=== PATIENT | male | born 1985 | race African-American/Black ===

== ENCOUNTER 2019-11-19 11:22 | Inpatient (IN) | payer OTHER ==
--- OUTSIDE RECORDS SUMMARY | 2019-11-19 11:24 | XMS REPORT ---
:1985 [facility] at the [facility] [place] [address] Care Team Providers Name Role Phone Unavailable Unavailable Unavailable Problems This patient has no known problems. Allergies, Adverse Reactions, Alerts This patient has no known allergies or adverse reactions. Medications This patient has no known medications.
[2019-11-19] MEDS ORDERED: ONDANSETRON 4 MG/2 ML VIAL ONE ×3 (12:18→18:42)
[2019-11-19] MEDS ORDERED: MORPHINE 4 MG/ML SYR ONE (12:18)
[2019-11-19] MEDS ORDERED: FENTANYL CITR 100 MCG/2 ML ONE ×7 (12:35→19:04)
[2019-11-19 12:43] LABS: Absolute Lymphocytes (CBC) 2.2 K/uL (0.7-4.9); Basophils % 0.4 % (0-1.3); Hematocrit 46.7 % (39.6-49.0); Lymphocytes % 13.9 % (15.3-44.8); MPV 8.4 fL (7.6-11.3)
[2019-11-19 12:51] LABS: BUN Blood Urea Nitrogen 10 mg/dL (7-18); Bicarbonate 35 mmol/L (21-32); Glucose Level 93 mg/dL (74-106); Potassium 3.4 mmol/L (3.5-5.1); Sodium Level 139 mmol/L (136-145)
--- NOTE | 2019-11-19 15:37 | RAD REPORT ---
EXAM DESCRIPTION: CTAbdomen Pelvis W Contrast - 11/19/2019 3:25 pm CLINICAL HISTORY: Abdominal pain. umbilical hernia;Abd pain;Pain COMPARISON: No comparisons TECHNIQUE: Biphasic CT imaging of the abdomen and pelvis was performed with 100 ml non-ionic IV cont rast. All CT scans are performed using dose optimization technique as appropriate and may include automated exposure control or mA/KV adjustment according to patient size. FINDINGS: The lung bases are clear.Small hiatal hernia. The liver, spleen, pancreas, adrenal glands and kidneys are within normal limits. Dilated small bowel loops are present in the mid and lower abdomen. This appears to be the result of a small bowel loop containing umbilical hernia which show signs of incarceration and demonstrates abr upt caliber change of the small bowel. No free air or abscess. Appendectomy. No evidence of signifi cant lymphadenopathy. No suspicious bony findings. IMPRESSION: Mild to moderate mechanical small-bowel obstruction is present caused by small bowel inc arcerated within a umbilical hernia.
[2019-11-19] MEDS ORDERED: PIPER/TAZO/NS 3.375gm 3.375 GM/100 ML BAG ONE (15:48)
--- NOTE | 2019-11-19 15:48 | EDPHYS ---
Physician Documentation [facility] Name: Eulalio Flores Jr Age: 34 yrs Sex: Male : 1985 Arrival Date: 11/19/2019 Time: 11:23 Bed 2 Private MD: Isabel Taylor K ED Physician Antonio Lee HPI: 11/19 16:02 This 34 yrs old Black Male presents to ER via Ambulatory with complaints of Abdominal kb Pain. 16:02 The patient presents with abdominal pain in the periumbilical area. Onset: The kb symptoms/episode began/occurred yesterday, at 13:00. The symptoms radiate to groin. Associated signs and symptoms: Pertinent positives: nausea. The symptoms are described as constant. Modifying factors: The symptoms are alleviated by nothing, the symptoms are aggravated by pressure. Severity of pain: At its worst the pain was moderate in the emergency department the pain is unchanged. The patient has not experienced similar symptoms in the past. The patient has been recently seen by a physician: the patient's primary care provider, earlier today, with similar presenting complaints, and was sent to the [facility] Emergency Department for further evaluation. Pt reports abd pain and nausea that started at 1300 yesterday. Went to his PCP today and was sent here for strangulated hernia. Historical: - Allergies: 11:42 No Known Allergies; jl7 - Home Meds: 11:42 Lisinopril Oral [Active]; hydrochlorothiazide Oral [Active]; jl7 - PMHx: 11:42 Hypertension; jl7 - PSHx: 11:42 Appendectomy; jl7 - Immunization history:: Adult Immunizations not up to date. - Coronavirus screen:: The patient has NOT traveled to [place], [place], or [place] in the past 14 days. Proceed with normal triage process as indicated. - Social history:: Smoking status: Patient reports the use of cigarette tobacco products, 1 or 2 cigarettes/day. - Ebola Screening: : No symptoms or risks identified at this time. ROS: 16:02 Constitutional: Negative for fever, chills, and weight loss, ENT: Negative for injury, kb pain, and discharge, Neck: Negative for injury, pain, and swelling, Cardiovascular: Negative for chest pain, palpitations, and edema, Respiratory: Negative for shortness of breath, cough, wheezing, and pleuritic chest pain, Back: Negative for injury and pain, : Negative for injury, bleeding, discharge, and swelling, MS/Extremity: Negative for injury and deformity, Skin: Negative for injury, rash, and discoloration, Neuro: Negative for headache, weakness, numbness, tingling, and seizure. 16:02 Abdomen/GI: Positive for abdominal pain, nausea. Exam: 16:00 Constitutional: This is a well developed, well nourished patient who is awake, alert, kb and in no acute distress. Head/Face: Normocephalic, atraumatic. Neck: Trachea midline, no thyromegaly or masses palpated, and no cervical lymphadenopathy. Supple, full range of motion without nuchal rigidity, or vertebral point tenderness. No Meningismus. Chest/axilla: Normal chest wall appearance and motion. Nontender with no deformity. No lesions are appreciated. Cardiovascular: Regular rate and rhythm with a normal S1 and S2. No gallops, murmurs, or rubs. Normal PMI, no JVD. No pulse deficits. Respiratory: Lungs have equal breath sounds bilaterally, clear to auscultation and percussion. No rales, rhonchi or wheezes noted. No increased work of breathing, no retractions or nasal flaring. Back: No spinal tenderness. No costovertebral tenderness. Full range of motion. Skin: Warm, dry with normal turgor. Normal color with no rashes, no lesions, and no evidence of cellulitis. MS/ Extremity: Pulses equal, no cyanosis. Neurovascular intact. Full, normal range of motion. Neuro: Awake and alert, GCS 15, oriented to person, place, time, and situation. Cranial nerves II-XII grossly intact. Motor strength 5/5 in all extremities. Sensory grossly intact. Cerebellar exam normal. Normal gait. 16:00 Abdomen/GI: Inspection: abdomen appears normal, Bowel sounds: normal, in all quadrants, Palpation: soft, in all quadrants, moderate abdominal tenderness, in the umbilical area, Hernia: noted in the umbilical area, incarceration, that is moderate, tenderness, that is moderate, that is severe. Vital Signs: 11:42 BP 133 / 74; Pulse 76; Resp 16 S; Temp 98.9(O); Pulse Ox 100% on R/A; Weight 114.31 kg jl7 (R); Height 5 ft. 6 in. (167.64 cm) (R); Pain 8/10; 12:45 BP 142 / 76; Pulse 64; Resp 15; Pulse Ox 98% on R/A; hb 13:45 BP 147 / 77; Pulse 58; Resp 16; Pulse Ox 99% on R/A; Pain 5/10; hb 14:45 BP 146 / 78; Pulse 58; Resp 17; Pulse Ox 98% on R/A; Pain 4/10; hb 15:45 BP 128 / 85; Pulse 83; Resp 17; Temp 98.5; Pulse Ox 99% on R/A; Pain 9/10; hb 16:21 BP 136 / 79; Pulse 69; Resp 14; Pulse Ox 99% on R/A; hb 11:42 Body Mass Index 40.67 (114.31 kg, 167.64 cm) jl7 MDM: 11:45 Patient medically screened. kb 13:41 Data reviewed: vital signs, nurses notes. Data interpreted: Pulse oximetry: on room air kb is 100 %. Interpretation: normal. ED course: I was able to partially reduce hernia after first dose of fentanyl. Dr Lee tried to reduce it as well, unable to fully reduce hernia. Fentanyl repeated. . 15:45 Counseling: I had a detailed discussion with the patient and/or guardian regarding: the kb historical points, exam findings, and any diagnostic results supporting the discharge/admit diagnosis, lab results, radiology results, the need for further work-up and treatment in the hospital. Physician consultation: Randy Calhoun MD was contacted at 15:45, regarding admission, to the medical/surgical unit. patient's condition, and will see patient in ED, shortly. 11/19 12:04 Order name: Basic Metabolic Panel; Complete Time: 14:08 kb 11/19 12:04 Order name: CBC with Diff; Complete Time: 12:46 kb 11/19 13:03 Order name: CT Abd/Pelvis - PO and IV Contrast; Complete Time: 15:42 shannon 11/19 16:20 Order name: Urine Dipstick--Ancillary (enter results) bd 11/19 16:30 Order name: Urine Dipstick-Ancillary; Complete Time: 16:36 EDMS 11/19 12:04 Order name: IV Saline Lock; Complete Time: 12:26 kb 01/29 12:04 Order name: Labs collected and sent; Complete Time: 12:26 kb Administered Medications: 12:26 Drug: morphine 4 mg Route: IVP; Site: right antecubital; hb 13:00 Follow up: Response: No adverse reaction hb 12:26 Drug: Zofran 4 mg Route: IVP; Site: right antecubital; hb 13:00 Follow up: Response: No adverse reaction hb 12:34 Drug: fentaNYL (PF) 50 mcg Route: IVP; Site: right antecubital; hb 13:00 Follow up: Response: No adverse reaction; Pain is decreased hb 13:01 Drug: fentaNYL (PF) 50 mcg Route: IVP; Site: right antecubital; sv 13:30 Follow up: Response: No adverse reaction; Pain is decreased hb 15:10 Drug: fentaNYL (PF) 50 mcg Route: IVP; Site: right antecubital; sv 15:30 Follow up: Response: No adverse reaction hb 15:49 Drug: fentaNYL (PF) 50 mcg {Note: RASS +2.} Route: IVP; Site: right antecubital; hb 16:22 Follow up: Response: No adverse reaction hb 16:00 Drug: Zosyn 3.375 grams Route: IVPB; Infused Over: 60 mins; Site: right antecubital; hb 17:05 Follow up: Response: No adverse reaction; IV Status: Completed infusion; IV Intake: hb 100ml 16:00 Drug: NS 0.9% 1000 ml Route: IV; Rate: 125 ml/hr; Site: right antecubital; hb 17:14 Follow up: Response: No adverse reaction; IV Status: Infusion continued upon admission hb 16:10 Drug: Valium 5 mg Route: IVP; Site: right antecubital; hb 16:30 Follow up: Response: No adverse reaction hb Disposition: 11/20 07:36 Co-signature as Attending Physician, Antonio Lee MD I agree with the assessment and shannon plan of care. Disposition: 11/19/19 15:47 Hospitalization ordered by Randy Calhoun for Inpatient Admission. Preliminary diagnosis is Small Bowel obstruction secondary to incarcerated umbilical hernia. - Bed requested for Telemetry/MedSurg (Inpatient). - Status is Inpatient Admission. hb - Condition is Stable. - Problem is new. - Symptoms are unchanged. UTI on Admission? No Signatures: Dispatcher [employer] EDMS Dayan Lala, CHIEF JUVENILE PROBATION OFFICER-C CHIEF JUVENILE PROBATION OFFICER-Ckb Melissa Fraga, RN RN Antonio Hernandez MD MD cha Baxter, Heather, RN RN Zuleika Cabrera RN RN jl7 Corrections: (The following items were deleted from the chart) 11/19 13:09 12:54 Abdomen Pelvis W Con+CT.RAD.BRZ ordered. EDNE EDMS 17:47 15:47 Hospitalization Ordered by Randy Calhoun MD for Inpatient Admission. Preliminary hb diagnosis is Small Bowel obstruction secondary to incarcerated umbilical hernia. Bed requested for Telemetry/MedSurg (Inpatient). Status is Inpatient Admission. Condition is Stable. Problem is new. Symptoms are unchanged. UTI on Admission? No. kb
--- NOTE | 2019-11-19 15:48 | ER ---
Nurse's Notes [facility] Name: Eulalio Flores Jr Age: 34 yrs Sex: Male : 1985 Arrival Date: 11/19/2019 Time: 11:23 Bed 2 Private MD: Isabel Taylor K Diagnosis: Small Bowel obstruction secondary to incarcerated umbilical hernia Presentation: 11/19 11:39 Presenting complaint: Patient states: Umbilical area abdominal pain started at 1300 jl7 yesterday, N/V, chills and cold sweats all last night. Went to Dr. Taylor and she sent me to be evaluated for a strangulated umbilical hernia. Transition of care: patient was not received from another setting of care. Onset of symptoms was November 18, 2019 at 13:00. Risk Assessment: Do you want to hurt yourself or someone else? Patient reports no desire to harm self or others. Initial Sepsis Screen: Does the patient meet any 2 criteria? No. Patient's initial sepsis screen is negative. Does the patient have a suspected source of infection? No. Patient's initial sepsis screen is negative. Care prior to arrival: None. 11:39 Method Of Arrival: Ambulatory jl7 11:39 Acuity: AILIN 3 jl7 Triage Assessment: 11:42 General: Appears in no apparent distress. uncomfortable, Behavior is calm, cooperative, jl7 appropriate for age. Pain: Complains of pain in umbilical area Pain currently is 8 out of 10 on a pain scale. GI: Reports nausea. Historical: - Allergies: 11:42 No Known Allergies; jl7 - Home Meds: 11:42 Lisinopril Oral [Active]; hydrochlorothiazide Oral [Active]; jl7 - PMHx: 11:42 Hypertension; jl7 - PSHx: 11:42 Appendectomy; jl7 - Immunization history:: Adult Immunizations not up to date. - Coronavirus screen:: The patient has NOT traveled to [place], [place], or [place] in the past 14 days. Proceed with normal triage process as indicated. - Social history:: Smoking status: Patient reports the use of cigarette tobacco products, 1 or 2 cigarettes/day. - Ebola Screening: : No symptoms or risks identified at this time. Screenin:35 Abuse screen: Denies threats or abuse. Denies injuries from another. Nutritional hb screening: No deficits noted. Tuberculosis screening: No symptoms or risk factors identified. Fall Risk None identified. Assessment: 12:05 General: Appears in no apparent distress. Behavior is calm, cooperative. Pain: Pain hb currently is 8 out of 10 on a pain scale. Neuro: Level of Consciousness is awake, alert, obeys commands, Oriented to person, place, time, situation. Cardiovascular: Capillary refill < 3 seconds Patient's skin is warm and dry. Respiratory: Airway is patent Respiratory effort is even, unlabored, Respiratory pattern is regular, symmetrical, Breath sounds are clear bilaterally. GI: Abdomen is obese, Bowel sounds present X 4 quads. Abd is soft X 4 quads Abdomen is tender to palpation upper abdomen, periumbilical area. : No signs and/or symptoms were reported regarding the genitourinary system. EENT: No signs and/or symptoms were reported regarding the EENT system. Derm: Skin is pink, warm \T\ dry. Musculoskeletal: No signs and/or symptoms reported regarding the musculoskeletal system. 13:29 Reassessment: Informed CT pt finished contrast. sv 13:49 Reassessment: Patient appears in no apparent distress at this time. Patient and/or hb family updated on plan of care and expected duration. Pain level reassessed. Patient is alert, oriented x 3, equal unlabored respirations, skin warm/dry/pink. 14:30 Reassessment: Patient appears in no apparent distress at this time. Patient and/or hb family updated on plan of care and expected duration. Pain level reassessed. Patient is alert, oriented x 3, equal unlabored respirations, skin warm/dry/pink. 15:15 Reassessment: Pt c/o abdominal pain 8/10, WEATHER ANALYST Dayan notified, repeat Fentanyl hb administered as ordered. Family remains at bedside. 15:56 Reassessment: Pt restless, crying, reports abdominal pain 9/10, WEATHER ANALYST Dayan notified, hb repeat fentanyl administered as ordered. VSS. Family remains at bedside. 16:20 Reassessment: Dr. Calhoun and Dr. Lee at bedside. Consent for surgery obtained. hb Valium administered as ordered. Family remains at bedside. Awaiting OR team for transport to OR at this time. 17:00 Reassessment: Patient appears in no apparent distress at this time. Patient and/or hb family updated on plan of care and expected duration. Pain level reassessed. Patient is alert, oriented x 3, equal unlabored respirations, skin warm/dry/pink. Vital Signs: 11:42 BP 133 / 74; Pulse 76; Resp 16 S; Temp 98.9(O); Pulse Ox 100% on R/A; Weight 114.31 kg jl7 (R); Height 5 ft. 6 in. (167.64 cm) (R); Pain 8/10; 12:45 BP 142 / 76; Pulse 64; Resp 15; Pulse Ox 98% on R/A; hb 13:45 BP 147 / 77; Pulse 58; Resp 16; Pulse Ox 99% on R/A; Pain 5/10; hb 14:45 BP 146 / 78; Pulse 58; Resp 17; Pulse Ox 98% on R/A; Pain 4/10; hb 15:45 BP 128 / 85; Pulse 83; Resp 17; Temp 98.5; Pulse Ox 99% on R/A; Pain 9/10; hb 16:21 BP 136 / 79; Pulse 69; Resp 14; Pulse Ox 99% on R/A; hb 11:42 Body Mass Index 40.67 (114.31 kg, 167.64 cm) jl7 ED Course: 11:23 Patient arrived in ED. as 11:23 Isabel Taylor MD is Private Physician. as 11:41 Triage completed. jl7 11:42 Dayan Lala [facility]-Jacinta [facility] kb 11:42 Antonio Lee MD is Attending Physician. kb 11:42 Arm band placed on right wrist. jl7 12:12 Elma Storm, TRICE is Primary Nurse. hb 12:25 Inserted saline lock: 20 gauge in right antecubital area, using aseptic technique. hb Blood collected. 12:26 Patient has correct armband on for positive identification. Bed in low position. Call hb light in reach. Side rails up X 1. 15:26 CT Abd/Pelvis - PO and IV Contrast In Process Unspecified. EDMS 15:47 Randy Calhoun MD is Hospitalizing Provider. kb 17:14 Urine Dipstick--Ancillary (enter results) Sent. hb 17:46 No provider procedures requiring assistance completed. Patient admitted, IV remains in hb place. Administered Medications: 12:26 Drug: morphine 4 mg Route: IVP; Site: right antecubital; hb 13:00 Follow up: Response: No adverse reaction hb 12:26 Drug: Zofran 4 mg Route: IVP; Site: right antecubital; hb 13:00 Follow up: Response: No adverse reaction hb 12:34 Drug: fentaNYL (PF) 50 mcg Route: IVP; Site: right antecubital; hb 13:00 Follow up: Response: No adverse reaction; Pain is decreased hb 13:01 Drug: fentaNYL (PF) 50 mcg Route: IVP; Site: right antecubital; sv 13:30 Follow up: Response: No adverse reaction; Pain is decreased hb 15:10 Drug: fentaNYL (PF) 50 mcg Route: IVP; Site: right antecubital; sv 15:30 Follow up: Response: No adverse reaction hb 15:49 Drug: fentaNYL (PF) 50 mcg {Note: RASS +2.} Route: IVP; Site: right antecubital; hb 16:22 Follow up: Response: No adverse reaction hb 16:00 Drug: Zosyn 3.375 grams Route: IVPB; Infused Over: 60 mins; Site: right antecubital; hb 17:05 Follow up: Response: No adverse reaction; IV Status: Completed infusion; IV Intake: hb 100ml 16:00 Drug: NS 0.9% 1000 ml Route: IV; Rate: 125 ml/hr; Site: right antecubital; hb 17:14 Follow up: Response: No adverse reaction; IV Status: Infusion continued upon admission hb 16:10 Drug: Valium 5 mg Route: IVP; Site: right antecubital; hb 16:30 Follow up: Response: No adverse reaction hb Intake: 17:05 IV: 100ml; Total: 100ml. hb Outcome: 15:47 Decision to Hospitalize by Provider. kb 17:46 Admitted to OR accompanied by nurse, family with patient, via stretcher, with chart. hb 17:46 Condition: stable 17:46 Instructed on the need for admit, Demonstrated understanding of instructions. 17:47 Patient left the ED. hb Signatures: Dispatcher [employer] EDMS Dayan Lala FNP-C FNP-Ckb Verde, Stephanie, RN RN sv Martinez, Amelia as Baxter, Heather, RN RN Zuleika Cabrera RN RN jl7 Corrections: (The following items were deleted from the chart) 14:56 14:55 BP 146 / 78; Pulse 58bpm; Resp 17bpm; Pulse Ox 98% RA; Pain 4/10; hb hb 16:19 06:13 Valium 5 mg IVP in right antecubital hb hb
[2019-11-19] MEDS ORDERED: NA CHLORIDE 0.9% 1,000 ML ONE (15:57)
[2019-11-19] MEDS ORDERED: DIAZEPAM 10 MG/2 ML INJ SYRINGE ONE (16:12)
[2019-11-19 16:29] LABS: Urine Blood 1+ (NEG); Urine Glucose NEGATIVE (NEG); Urine Protein 2+ (NEG); Urine pH 8.5 (5.0-7.0)
--- NOTE | 2019-11-19 17:53 | P.HP ---
Date of Service: 11/19/19 PC: This 34-year-old male presents emergency room with severe periumbilical pain for diagnosis and treatment. HPC: Patient had sudden onset of excruciating abdominal pain earlier this afternoon. Noticed a bulge in that area. He could not put it back inside. PMH: Hypertension PSHx: Previous laparoscopic appendectomy SOC: No known allergies SYS REVIEW: No cough, wheeze, shortness of breath. No chest pain or palpitations. Has sleep apnea. Lost about 80 lb over the last year so O/E awake alert vital signs are stable very uncomfortable HEENT: Within normal limits Chest: Chest movement equal bilaterally ABD: Firm hard tender mass in the periumbilical region LOCO: Intact DATA: Elevated white cell count, CT scan demonstrates meghana umbilical hernia with bowel has content IMPRESSION: Incarcerated umbilical hernia PLAN: I will take him the operating room for laparoscopic reduction repair of this incarcerated hernia. The risks of this procedure have been discussed. The possibility of bleeding, infection, need for bowel resection and possible open procedure have been outlined. The use of mass and its possible risks were explained. Suture versus mesh repairs were outlined. He understands and wants us to proceed.
[2019-11-19] MEDS ORDERED: SUCCINYLCHOLINE 20 MG/ML (10 ML) IV ONE (17:54)
[2019-11-19] MEDS ORDERED: propofoL 200 MG/20 ML VIAL IV ONE (18:00)
[2019-11-19] MEDS ORDERED: LIDOCAINE 2% MPF 5 ML VIAL ONE (18:05)
[2019-11-19] MEDS ORDERED: ROCURONIUM 50 MG/5 ML VIAL IV ONE (18:30)
[2019-11-19] MEDS ORDERED: KETOROLAC 30 MG/ML INJ ONE (18:42)
[2019-11-19] MEDS ORDERED: dexAMETHasone 10 MG/ML VIAL ONE (18:42)
[2019-11-19] MEDS ORDERED: GLYCOPYRROLATE 0.2 MG/ML SYR ONE ×2 (18:52→19:01)
[2019-11-19] MEDS ORDERED: NEOSTIGMINE 1 MG/ML -5 ML ONE (19:02)
[2019-11-19] MEDS: Ringers Lactate 1,000 ML IV ONE ×2 (19:17→19:20)
--- NOTE | 2019-11-19 19:54 | P.OP ---
Preoperative diagnosis: Incarcerated umbilical hernia Postoperative diagnosis: Strangulated umbilical hernia Primary procedure: Laparoscopic reduction of strangulated umbilical hernia Secondary procedure: Small-bowel resection Other procedure(s): Open umbilical hernia repair Anesthesia: General Estimated blood loss: Less than 20 cc Specimen: Incarcerated bowel, hernia sac Operative Technique: The patient was brought to the operating room placed supine on the table. After the induction of adequate general endotracheal anesthesia, a Regalado catheter was inserted. The abdomen was now prepped with a DuraPrep solution, in use draped in usual aseptic manner. Attention was turned towards the left upper quadrant. A skin incision was made. This brought down through the skin and subcutaneous tissue. The Visiport was now used to enter the peritoneal cavity and created pneumoperitoneum to approximately 12 mm of mercury. Under direct vision a 5 mm trocar was placed in the left lower quadrant. Attention was turned towards the anterior abdominal wall. We could see 2 loops of viable bowel going up to the abdominal wall. This was the afferent and AE for it loops that were incarcerated. Applying gentle traction to the area as well as external pressure we were able to gradually reduce this intestine back into the peritoneal cavity. We could see there was obvious sharp line of demarcation any area of vascular compromise bowel. At this point attention was turned towards the umbilicus. Making a skin incision down through the skin and subcutaneous tissue. We were able to circumvent the emboli kiss. The hernia sac was found in the subcutaneous tissue. There was incarcerated ligament inside this. This was not resected from the surrounding tissue. We now had a defect that measured approximately 2.5 cm in size. We were to bring up the loop of compromise bowel through this defect. Using a MACRINA AE a [id number] functional end-to-end anastomosis was done. The bowel was now returned to the abdominal cavity. The hernial defect was addressed at this point. Using the Endo Close we were able to place 3 interrupted sutures of nylon to bring together the facile edges. A piece of 2. Nylon was then run from the top to the bottom of this to ensure we had airtight fascia approximating the closure. This having been done the pneumoperitoneum was reestablished. We were now able to visualize the peritoneal cavity. We saw the anastomosis as of lay on top of the bowel. It showed good viability and visible peristalsis. This was covered over with the omentum. Anterior abdominal wall was also inspected in the lower portion of the abdomen. There is no significant inguinal hernias. At this point the pneumoperitoneum was collapsed, the trocars removed, and dae were applied to the skin. At the end of the procedure he was stable when sent to the recovery room. Needle sponge instrument count were correct. No drains were placed. Complications: None Transferred to: Recovery Room Condition: Good
[2019-11-19] MEDS ORDERED: NS KCL 20MEQ 20 MEQ/1,000 ML BAG IV SCH (20:17)
[2019-11-19] MEDS: Ringers Lactate 1,000 ML IV SCH (20:17)
[2019-11-19] MEDS ORDERED: ACETAMINOPHEN 500 MG TAB PO PRN (20:17)
[2019-11-19] MEDS ORDERED: ONDANSETRON 4 MG/2 ML VIAL IV PRN ×2 (20:17)
[2019-11-19] MEDS ORDERED: MORPHINE 4 MG/ML SYR IV PRN (20:17)
[2019-11-19] MEDS ORDERED: FENTANYL CITR 100 MCG/2 ML IV PRN (20:17)
[2019-11-19] MEDS: PIPER/TAZO/NS 3.375gm 3.375 GM/100 ML BAG IVPB SCH ×2 (20:17→23:06)
[2019-11-19 20:59] VITALS: BMI 40.6
[2019-11-19] MEDS ORDERED: PIPERACIL/TAZO 3.375 GM VIAL IV ONE (22:52)
[2019-11-19] MEDS ORDERED: NA CHLORIDE 0.9% 100 ML ONE (22:59)
[2019-11-19] MEDS: HYDROCODONE/APAP 7.5/325 MG TAB PO PRN (23:05)
[2019-11-20] MEDS: Ringers Lactate 1,000 ML IV SCH (03:06)
[2019-11-20] MEDS: HYDROCODONE/APAP 7.5/325 MG TAB PO PRN ×2 (04:07→09:11)
[2019-11-20] MEDS ORDERED: NA CHLORIDE 0.9% 100 ML ONE (05:13)
[2019-11-20] MEDS: PIPER/TAZO/NS 3.375gm 3.375 GM/100 ML BAG IVPB SCH (05:19)
[2019-11-20 05:53] LABS: Absolute Lymphocytes (CBC) 1.1 K/uL (0.7-4.9); Basophils % 0.1 % (0-1.3); Hematocrit 42.2 % (39.6-49.0); MPV 8.9 fL (7.6-11.3); RBC Red Blood Cell Count 4.88 M/uL (4.33-5.43)
[2019-11-20 05:54] LABS: BUN Blood Urea Nitrogen 10 mg/dL (7-18); Bicarbonate 28 mmol/L (21-32); Glucose Level 121 mg/dL (74-106); Potassium 3.5 mmol/L (3.5-5.1); Sodium Level 138 mmol/L (136-145)
[2019-11-20] MEDS ORDERED: INFLUENZA VACCINE (for 3y+) 0.5 ML DOSE IMVAC ONE (06:00)
[2019-11-20] MEDS ORDERED: PIPER/TAZO/NS 3.375gm 3.375 GM/100 ML BAG IVPB SCH (11:00)
[2019-11-20 11:10] VITALS: BP 128/66; TEMP 97
[2019-11-20 12:43] VITALS: O2SAT 98
--- NOTE | 2019-11-20 13:09 | P.PN ---
Date of Service: 11/20/19 S: Patient feels well today, very thankful and relieved that his pain is gone. O: Vital signs are stable, tolerating full liquids, pain is well controlled on oral medications incision is clean A: Surgically stable status post small bowel resection for strangulated umbilical hernia PE: Discharge home. Instructions given.
== END 2019-11-20 13:25 | disposition home or self-care (01) | DRG 331 ==
LOC: ER 11:22 → ERHOLD 15:54 → 2ND 18:49
PROVIDERS: ADMIT Surgery; ATTEND Surgery
PROC: 0WQF0ZZ Repair Abdominal Wall, Open Approach (ICD-10-PCS; 2019-11-19)
PROC: 0WJF4ZZ Inspection of Abdominal Wall, Percutaneous Endoscopic Approach (ICD-10-PCS; 2019-11-19)
PROC: 0DB84ZZ Excision of Small Intestine, Percutaneous Endoscopic Approach (ICD-10-PCS; principal; 2019-11-19 18:00)
DX: K42.0 Umbilical hernia with obstruction, without gangrene (principal); I10 Essential (primary) hypertension
CPT/HCPCS: 36415; 74177; 80048; 81003; 85025; 88302; 88305; 88307; 96365; 96375; 99285; J0330; J1100; J2405; J2543; J2704; J2710; J3010; J3360; J7030; J7120; Q9967

== ENCOUNTER 2019-11-22 21:03 | Emergency (ER) | payer OTHER ==
--- OUTSIDE RECORDS SUMMARY | 2019-11-22 21:05 | XMS REPORT ---
:1985 [facility] Address [address] [place] [address] [address] [place] [address] Care Team Providers Name Role Phone Unavailable Unavailable Unavailable Problems This patient has no known problems. Allergies, Adverse Reactions, Alerts This patient has no known allergies or adverse reactions. Medications This patient has no known medications.
--- NOTE | 2019-11-22 22:03 | EDPHYS ---
Physician Documentation [facility] Name: Eulalio Flores Jr Age: 34 yrs Sex: Male : 1985 Arrival Date: 11/22/2019 Time: 21:06 Bed 26 Private MD: Isabel Taylor K ED Physician Gregorio Kaufman HPI: 11/22 21:41 This 34 yrs old Black Male presents to ER via Ambulatory with complaints of POST [facility] SURGICAL PROBLEM. 21:41 Patient presents to ED for recheck of: surgical incision. The affected area is on the [facility] umbilical area. This is a 34 year old male s/p hernia repair which occurred 3 days prior. Patient states having a large amount of bloody drainage just prior to arrival. Patient denies abdominal pain, fever or chills. . Historical: - Allergies: 21:14 No Known Allergies; jd3 - Home Meds: 21:14 lisinopril Oral [Active]; Hydrochlorothiazide Oral [Active]; jd3 - PMHx: 21:14 Hypertension; jd3 - PSHx: 21:14 Appendectomy; Hernia repair; jd3 - Immunization history:: Adult Immunizations up to date. - Coronavirus screen:: The patient has NOT traveled to [place], [place], or [place] in the past 14 days. The patient has NOT had contact with known/suspected case of Coronavirus? Proceed with normal triage procedures. - Social history:: Smoking status: Patient reports the use of cigarette tobacco products, denies chronic smoking, but will smoke occasionally. - Ebola Screening: : Patient negative for fever greater than or equal to 101.5 degrees Fahrenheit, and additional compatible Ebola Virus Disease symptoms. ROS: 21:41 Constitutional: Negative for fever, chills, and weight loss, Cardiovascular: Negative jmm for chest pain, palpitations, and edema, Respiratory: Negative for shortness of breath, cough, wheezing, and pleuritic chest pain, Abdomen/GI: Negative for abdominal pain, nausea, vomiting, diarrhea, and constipation. 21:41 Skin: Positive for drainage. 21:41 All other systems are negative. Exam: 21:41 Constitutional: This is a well developed, well nourished patient who is awake, alert, jmm and in no acute distress. Head/Face: atraumatic. Eyes: EOMI, no conjunctival erythema appreciated ENT: Moist Mucus Membranes Neck: Trachea midline, Supple Chest/axilla: Normal chest wall appearance and motion. Cardiovascular: Regular rate and rhythm. No edema appreciated Respiratory: Normal respirations, no respiratory distress appreciated 21:41 Abdomen/GI: abdomen is soft and non tender to palpation. incision sites noted with mild bleeding from the umbilical incision. no erythema or induration appreciated. 21:41 Musculoskeletal/extremity: ROM: intact in all extremities. 21:41 Skin: incision sites noted on abdominal exam. 21:41 Neuro: Orientation: is normal, Mentation: is normal, Memory: is normal. 21:41 Psych: Behavior/mood is pleasant, cooperative. Vital Signs: 21:14 BP 138 / 75; Pulse 79; Resp 17 S; Temp 97.2(TE); Pulse Ox 100% on R/A; Weight 114.31 kg jd3 (R); Height 5 ft. 6 in. (167.64 cm) (R); Pain 3/10; 22:09 BP 125 / 78; Pulse 80; Resp 18; Temp 98; Pulse Ox 100% on R/A; mg2 21:14 Body Mass Index 40.67 (114.31 kg, 167.64 cm) jd3 MDM: 21:41 Patient medically screened. [facility] 22:00 Data reviewed: vital signs, nurses notes. Counseling: I had a detailed discussion with yulia the patient and/or guardian regarding: the historical points, exam findings, and any diagnostic results supporting the discharge/admit diagnosis, the need for outpatient follow up, to return to the emergency department if symptoms worsen or persist or if there are any questions or concerns that arise at home. ED course: No signs of infection appreciated. Abdomen is soft, patient is afebrile and non toxic in appearance. I discussed the patient with Dr. Calhoun when recommended removing a staple to allow for increased drainage. Will follow up with the patient on Sunday. Patient is otherwise given strict return precautions. . 11/22 21:55 Order name: Wound Care; Complete Time: 21:56 french Administered Medications: No medications were administered Disposition: 11/22/19 22:02 Discharged to Home. Impression: Wound Check. - Condition is Stable. - Discharge Instructions: [place]. - Medication Reconciliation Form, Thank You Letter, Antibiotic Education, Prescription Opioid Use form. - Follow up: Randy Calhoun MD; When: 11/24/2019. Addendum: 11/24/2019 07:47 Co-signature as Attending Physician, Gregorio Kaufman MD I agree with the assessment and t w4 plan of care. Signatures: Daniel Black PA PA jmm Davies, Jonathon, RN RN jd3 Gregorio Kaufman MD MD tw4 Jonny Lazaro RN RN mg2 Corrections: (The following items were deleted from the chart) 11/22 22:10 22:02 11/22/2019 22:02 Discharged to Home. Impression: Wound Check. Condition is mg2 Stable. Forms are Medication Reconciliation Form, Thank You Letter, Antibiotic Education, Prescription Opioid Use. Follow up: Randy Calhoun; When: 11/24/2019. yulia
--- NOTE | 2019-11-22 22:03 | ER ---
Nurse's Notes [facility] Name: Eulalio Flores Jr Age: 34 yrs Sex: Male : 1985 Arrival Date: 11/22/2019 Time: 21:06 Bed 26 Private MD: Isabel Taylor K Diagnosis: Wound Check Presentation: 11/22 21:11 Presenting complaint: Patient states: "I had hernia repair on Sunday afternoon and jd3 released on . I have been feeling good, but I noticed some bleeding from the surgical site and I wanted to be sure nothing popped.". Transition of care: patient was not received from another setting of care. Onset of symptoms was November 22, 2019. Risk Assessment: Do you want to hurt yourself or someone else? Patient reports no desire to harm self or others. Initial Sepsis Screen: Does the patient meet any 2 criteria? No. Patient's initial sepsis screen is negative. Does the patient have a suspected source of infection? No. Patient's initial sepsis screen is negative. Care prior to arrival: None. 21:11 Method Of Arrival: Ambulatory jd3 21:11 Acuity: AILIN 4 jd3 Historical: - Allergies: 21:14 No Known Allergies; jd3 - Home Meds: 21:14 lisinopril Oral [Active]; Hydrochlorothiazide Oral [Active]; jd3 - PMHx: 21:14 Hypertension; jd3 - PSHx: 21:14 Appendectomy; Hernia repair; jd3 - Immunization history:: Adult Immunizations up to date. - Coronavirus screen:: The patient has NOT traveled to [place], [place], or [place] in the past 14 days. The patient has NOT had contact with known/suspected case of Coronavirus? Proceed with normal triage procedures. - Social history:: Smoking status: Patient reports the use of cigarette tobacco products, denies chronic smoking, but will smoke occasionally. - Ebola Screening: : Patient negative for fever greater than or equal to 101.5 degrees Fahrenheit, and additional compatible Ebola Virus Disease symptoms. Screenin:08 Abuse screen: Denies threats or abuse. Denies injuries from another. Nutritional mg2 screening: No deficits noted. Tuberculosis screening: No symptoms or risk factors identified. Fall Risk None identified. Assessment: 22:07 General: Appears in no apparent distress. comfortable, Behavior is calm, cooperative. mg2 Pain: Complains of pain in umbilical area. Neuro: Level of Consciousness is awake, alert, obeys commands, Oriented to person, place, time, situation. Cardiovascular: Capillary refill < 3 seconds Patient's skin is warm and dry. Respiratory: Airway is patent Respiratory effort is even, unlabored, Respiratory pattern is regular, symmetrical. GI: No signs and/or symptoms were reported involving the gastrointestinal system. : No signs and/or symptoms were reported regarding the genitourinary system. EENT: No signs and/or symptoms were reported regarding the EENT system. Derm: Wound noted umbilical area Wound is post surgical wound Other: with dae on- not infected. Musculoskeletal: Circulation, motion, and sensation intact. Capillary refill < 3 seconds. Vital Signs: 21:14 BP 138 / 75; Pulse 79; Resp 17 S; Temp 97.2(TE); Pulse Ox 100% on R/A; Weight 114.31 kg jd3 (R); Height 5 ft. 6 in. (167.64 cm) (R); Pain 3/10; 22:09 BP 125 / 78; Pulse 80; Resp 18; Temp 98; Pulse Ox 100% on R/A; mg2 21:14 Body Mass Index 40.67 (114.31 kg, 167.64 cm) jd3 ED Course: 21:06 Patient arrived in ED. es 21:07 Isabel Taylor MD is Private Physician. es 21:13 Triage completed. jd3 21:14 Arm band placed on. jd3 21:16 [facility] Black [facility] 21:16 Gregorio Kaufman MD is Attending Physician. [facility] 21:36 Jonny Lazaro, TRICE is Primary Nurse. mg2 22:01 Randy Calhoun MD is Referral Physician. jmm 22:08 staple removal. Patient did not have IV access during this emergency room visit. mg2 22:09 Patient has correct armband on for positive identification. mg2 22:09 Dressings: 4X4s X 1; umbilical area. mg2 Administered Medications: No medications were administered Outcome: 22:02 Discharge ordered by . [facility] 22:09 Discharged to home ambulatory, with family. mg2 22:09 Condition: good 22:09 Discharge instructions given to patient, family, Instructed on discharge instructions, follow up and referral plans. wound care, Demonstrated understanding of instructions, follow-up care, wound care. 22:10 Patient left the ED. mg2 Signatures: Daniel Black PA PA jmm Salyer, Edna es Davies, Jonathon, RN RN jd3 Jonny Lazaro RN RN mg2
[2019-11-23 00:50] VITALS: O2SAT 100
[2019-11-23 00:52] VITALS: BP 125/78; TEMP 98
== END 2019-11-22 22:10 | disposition home or self-care (01) ==
LOC: ER 21:03
DX: Z48.01 Encounter for change or removal of surgical wound dressing (principal); I10 Essential (primary) hypertension; Z72.0 Tobacco use
CPT/HCPCS: 99281